=== PATIENT | male | born 1975 | race Caucasian/White ===

== ENCOUNTER 2020-01-24 18:40 | Emergency (ER) | payer OTHER ==
[2020-01-24] MEDS ORDERED: TETANUS & DIPHTHERIA TOX,ADULT 0.5 ML VIAL ONE (19:23)
[2020-01-24] MEDS ORDERED: IBUPROFEN 400 MG TAB ONE (19:23)
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
[2020-01-25 01:37] VITALS: TEMP 97.8
[2020-01-25 01:39] VITALS: O2SAT 100
[2020-01-25 01:41] VITALS: BP 143/95
== END 2020-01-24 20:30 | disposition home or self-care (01) ==
LOC: ER 18:40
DX: S60.512A Abrasion of left hand, initial encounter (principal); S60.511A Abrasion of right hand, initial encounter; S80.01XA Contusion of right knee, initial encounter; S60.222A Contusion of left hand, initial encounter; S60.221A Contusion of right hand, initial encounter; V49.49XA Driver injured in collision with other motor vehicles in traffic accident, initial encounter; Z23 Encounter for immunization
CPT/HCPCS: 90471; 90714; 99284

== ENCOUNTER 2020-03-04 16:31 | Inpatient (IN) | payer OTHER ==
--- NOTE | 2020-03-04 20:44 | EDPHYS ---
Physician Documentation [facility] Name: Nadir Bradley Age: 45 yrs Sex: Male : 1975 Arrival Date: 03/04/2020 Time: 16:33 Bed 17 Private MD: ED Physician Prashanth Davies HPI: 03/04 20:37 This 45 yrs old Male presents to ER via Ambulatory with complaints of Arm rn Swelling. 20:37 The patient presents with cellulitis of the left arm, the patient presents with a rn swollen area of the left arm. Description: erythematous, swollen, tense, warm. Onset: The symptoms/episode began/occurred 3 day(s) ago. Possible cause(s): unknown. Associated signs and symptoms: Pertinent positives: erythema, swelling, Pertinent negatives: fever. Modifying factors: the symptoms are alleviated by nothing, the symptoms are aggravated by nothing. 20:39 Severity of symptoms: At their worst the symptoms were moderate, in the emergency rn department the symptoms are unchanged. The patient has experienced a previous episode. REports 3 days of clindamycin for swollen and red left arm, no known injury, seen by Dr. Plata as outpt, redness increasing, told to come to ER for admission. No pain in elbow joint, FROM. Reports "skin feels tight". + hx of difficult to treat staph infection right knee bursa in past that required multiple abx changes. NO trauma. No hx of dvt/PE.. Historical: - Allergies: 16:36 No Known Allergies; sv - PMHx: 16:36 Bursitis; sv - PSHx: 16:36 None; sv - Immunization history:: Adult Immunizations up to date. - Family history:: not pertinent. - Social history:: Smoking status: unknown. - Hospitalizations: : No recent hospitalization is reported. ROS: 20:39 Constitutional: Negative for fever, chills, and weight loss, Eyes: Negative for injury, rn pain, redness, and discharge, Neck: Negative for injury, pain, and swelling, Cardiovascular: Negative for chest pain, palpitations, and edema, Respiratory: Negative for shortness of breath, cough, wheezing, and pleuritic chest pain, Abdomen/GI: Negative for abdominal pain, nausea, vomiting, diarrhea, and constipation, Back: Negative for injury and pain, MS/Extremity: + swelling and pain to LUE. Skin: + redness and warmth LUE. Neuro: Negative for headache, weakness, numbness, tingling, and seizure. Exam: 20:39 Constitutional: This is a well developed, well nourished patient who is awake, alert, rn and in no acute distress. Head/Face: Normocephalic, atraumatic. Cardiovascular: Regular rate and rhythm. No pulse deficits. Respiratory: No increased work of breathing, no retractions or nasal flaring. Skin: Warm, + erythema and induration of skin from distal left forearm to mid humerus, FROM left elbow. No fluctuance. MS/ Extremity: Pulses equal, no cyanosis. Neurovascular intact. Full, normal range of motion. Neuro: Awake and alert, GCS 15 Vital Signs: 16:36 BP 133 / 97; Pulse 86; Resp 16; Temp 98.1(TE); Pulse Ox 99% on R/A; Weight 102.06 kg; sv Height 5 ft. 10 in. (177.80 cm); 21:00 BP 134 / 75; Pulse 75; Resp 14; Pulse Ox 98% on R/A; ll2 22:00 BP 132 / 86; Pulse 75; Resp 16; Pulse Ox 99% on R/A; ll2 16:36 Body Mass Index 32.28 (102.06 kg, 177.80 cm) sv MDM: 20:24 Patient medically screened. rn 20:42 Differential diagnosis: cellulitis. Differential diagnosis: bursitis. Data reviewed: rn vital signs, nurses notes. Counseling: I had a detailed discussion with the patient and/or guardian regarding: the historical points, exam findings, and any diagnostic results supporting the discharge/admit diagnosis, the need for further work-up and treatment in the hospital. Admission orders: after a detailed discussion of the patient's condition and case, the admit orders are written by me. ED course: Pt with failure of outpt therapy for cellulitis, FROM left elbow, do not believe is septic arthritis, will admit for IV abx given worsening on clindamycin and difficult to treat cellulitis/bursitis in past. . 03/04 20:37 Order name: CBC with Diff rn 03/04 20:37 Order name: Basic Metabolic Panel rn 03/04 20:37 Order name: Procalcitonin rn 03/04 20:37 Order name: Blood Culture Adult (2) rn 03/04 20:37 Order name: CRP rn 03/04 20:45 Order name: COVID-19 sg 03/04 20:38 Order name: Extremity Venous Uni Ltd US rn 03/04 21:38 Order name: Basic Metabolic Panel EDCA 03/04 21:38 Order name: C-Reactive Protein EDMS 03/04 21:38 Order name: Procalcitonin EDMS 03/04 21:38 Order name: CBC with Automated Diff; Complete Time: 22:17 EDMS 03/04 21:38 Order name: Blood Culture EDMS 03/04 21:38 Order name: Blood Culture EDCA 03/04 22:24 Order name: SARS-COV-2 RT PCR; Complete Time: 22:25 EDMS 03/04 20:37 Order name: IV Start; Complete Time: 21:24 rn Administered Medications: 21:35 Drug: Cefepime 1 grams Route: IVPB; Rate: 200 ml/hr; Infused Over: 30 mins; Site: right ll2 antecubital; 22:16 Follow up: IV Status: Completed infusion; IV Intake: 100ml ll2 22:16 Follow up: Response: No adverse reaction ll2 22:26 Drug: vancoMYCIN 1 grams Route: IVPB; Infused Over: 2 hrs; Site: right antecubital; ll2 Disposition: 03/04/20 20:44 Hospitalization ordered by Navid Bailey for Inpatient Admission. Preliminary diagnosis are Cellulitis of left upper limb, Failure of outpatient therapy - cellulitis. - Bed requested for Telemetry/MedSurg (Inpatient). - Status is Inpatient Admission. ll2 - Condition is Stable. - Problem is new. - Symptoms have worsened. Signatures: Dispatcher [employer] [facility] Ann-Marie Carpio RN RN sv Webb, Martha, RN RN mw Nieto, Roman, MD MD rn Attema, Lee, CINTHYA-C [id number] Tiffany Meléndez RN RN ll2 Corrections: (The following items were deleted from the chart) 22:41 20:44 Hospitalization Ordered by Navid Bailey DO for Inpatient Admission. Preliminary mw diagnosis is Cellulitis of left upper limb; Failure of outpatient therapy - cellulitis. Bed requested for Telemetry/MedSurg (Inpatient). Status is Inpatient Admission. Condition is Stable. Problem is new. Symptoms have worsened. rn 23:07 22:41 03/04/2020 20:44 Hospitalization Ordered by Navid Bailey DO for Inpatient ll2 Admission. Preliminary diagnosis is Cellulitis of left upper limb; Failure of outpatient therapy - cellulitis. Bed requested for Telemetry/MedSurg (Inpatient). Status is Inpatient Admission. Condition is Stable. Problem is new. Symptoms have worsened. mw
--- NOTE | 2020-03-04 20:44 | ER ---
Nurse's Notes [facility] Name: Nadir Bradley Age: 45 yrs Sex: Male : 1975 Arrival Date: 03/04/2020 Time: 16:33 Bed 17 Private MD: Diagnosis: Cellulitis of left upper limb;Failure of outpatient therapy - cellulitis Presentation: 03/04 16:35 Chief complaint: Patient states: left elbow swelling since Wednesday. Saw his teledoc and sv was given Clindamycin but reports that the swelling and redness has increased. Coronavirus screen: Client denies travel out of the [place] in the last 14 days. At this time, the client does not indicate any symptoms associated with coronavirus-19. Ebola Screen: No symptoms or risks identified at this time. Risk Assessment: Do you want to hurt yourself or someone else? Patient reports no desire to harm self or others. Onset of symptoms was March 01, 2019. 16:35 Method Of Arrival: Ambulatory sv 16:35 Acuity: NAVEED 3 sv 16:36 Initial Sepsis Screen: Does the patient meet any 2 criteria? No. Patient's initial sv sepsis screen is negative. Does the patient have a suspected source of infection? No. Patient's initial sepsis screen is negative. Triage Assessment: 16:38 General: Appears in no apparent distress. uncomfortable, Behavior is calm, cooperative, sv appropriate for age. Pain: Complains of pain in left elbow. Neuro: Level of Consciousness is awake, alert, obeys commands, Oriented to person, place, time, situation, Gait is steady. Respiratory: Respiratory effort is even, unlabored. Historical: - Allergies: 16:36 No Known Allergies; sv - PMHx: 16:36 Bursitis; sv - PSHx: 16:36 None; sv - Immunization history:: Adult Immunizations up to date. - Family history:: not pertinent. - Social history:: Smoking status: unknown. - Hospitalizations: : No recent hospitalization is reported. Screenin:55 Abuse screen: Denies threats or abuse. Nutritional screening: No deficits noted. ll2 Tuberculosis screening: No symptoms or risk factors identified. Fall Risk None identified. Assessment: 20:50 General: Appears in no apparent distress. Behavior is calm, cooperative, appropriate ll2 for age. Pain: Complains of pain in left arm. Neuro: Level of Consciousness is awake, alert, obeys commands, Oriented to person, place, time, situation. Cardiovascular: Patient's skin is warm and dry. Respiratory: Airway is patent Respiratory effort is even, unlabored, Respiratory pattern is regular, symmetrical. GI: No signs and/or symptoms were reported involving the gastrointestinal system. : No signs and/or symptoms were reported regarding the genitourinary system. EENT: No signs and/or symptoms were reported regarding the EENT system. Derm: Skin is intact, Skin is pink, warm \T\ dry. Musculoskeletal: Circulation, motion, and sensation intact. Range of motion: intact in all extremities. 21:55 Reassessment: Patient and/or family updated on plan of care and expected duration. Pain ll2 level reassessed. Patient is alert, oriented x 3, equal unlabored respirations, skin warm/dry/pink. pt denies any side effects of antibiotics. 22:54 Reassessment: Patient and/or family updated on plan of care and expected duration. Pain ll2 level reassessed. Patient is alert, oriented x 3, equal unlabored respirations, skin warm/dry/pink. report given to HANNAH Hale. Vital Signs: 16:36 BP 133 / 97; Pulse 86; Resp 16; Temp 98.1(TE); Pulse Ox 99% on R/A; Weight 102.06 kg; sv Height 5 ft. 10 in. (177.80 cm); 21:00 BP 134 / 75; Pulse 75; Resp 14; Pulse Ox 98% on R/A; ll2 22:00 BP 132 / 86; Pulse 75; Resp 16; Pulse Ox 99% on R/A; ll2 16:36 Body Mass Index 32.28 (102.06 kg, 177.80 cm) sv ED Course: 16:33 Patient arrived in ED. rg4 16:36 Triage completed. sv 16:36 Arm band placed on. sv 20:24 Prashanth Davies MD is Attending Physician. rn 20:43 Navid Bailey DO is Hospitalizing Provider. rn 20:55 Patient has correct armband on for positive identification. Bed in low position. Call ll2 light in reach. Side rails up X 1. Pulse ox on. NIBP on. 20:55 No provider procedures requiring assistance completed. ll2 21:13 [place], Tiffany, HANNAH is Primary Nurse. ll2 22:57 Patient admitted, IV remains in place. ll2 Administered Medications: 21:35 Drug: Cefepime 1 grams Route: IVPB; Rate: 200 ml/hr; Infused Over: 30 mins; Site: right ll2 antecubital; 22:16 Follow up: IV Status: Completed infusion; IV Intake: 100ml ll2 22:16 Follow up: Response: No adverse reaction ll2 22:26 Drug: vancoMYCIN 1 grams Route: IVPB; Infused Over: 2 hrs; Site: right antecubital; ll2 Intake: 22:16 IV: 100ml; Total: 100ml. ll2 Outcome: 20:44 Decision to Hospitalize by Provider. rn 22:56 Admitted to Med/surg accompanied by tech, via wheelchair, Report called to HANNAH hale ll2 22:57 Condition: stable ll2 22:57 Instructed on the need for admit. 23:07 Patient left the ED. ll2 Signatures: Ann-Marie Carpio RN RN sv Nieto, Roman, MD MD rn Garcia, Rubi rg4 Tiffany Meléndez RN RN ll2 Corrections: (The following items were deleted from the chart) 16:38 16:36 Pulse 86bpm; Resp 16bpm; Pulse Ox 99% RA; Temp 98.1F Temporal; 102.06 kg; Height sv 5 ft. 10 in.; BMI: 32.2; sv
[2020-03-04] MEDS ORDERED: CEFEPIME 2 GM VIAL ONE (21:35)
[2020-03-04] MEDS ORDERED: NA CHLORIDE 0.9% 250 ML ONE (21:35)
[2020-03-04] MEDS ORDERED: VANCOMYCIN 1 GM/VIAL ONE (21:35)
[2020-03-04] MEDS ORDERED: NA CHLORIDE 0.9% 100 ML ONE (21:35)
[2020-03-04 21:51] LABS: Absolute Lymphocytes (CBC) 2.8 K/uL (0.7-4.9); Basophils % 0.8 % (0-1.3); Hematocrit 38.6 % (39.6-49.0); Lymphocytes % 25.4 % (15.3-44.8); RBC Red Blood Cell Count 4.32 M/uL (4.33-5.43)
--- NOTE | 2020-03-04 22:38 | P.HP ---
Certification for Inpatient Patient admitted to: Inpatient With expected LOS: >2 Midnights Patient will require the following post-hospital care: None Practitioner: I am a practitioner with admitting privileges, knowledge of patient current condition, hospital course, and medical plan of care. Services: Services provided to patient in accordance with Admission requirements found in Title 42 Section 412.3 of the Code of Federal Regulations <Joshua Jones - Last Filed: 03/04/20 22:35> Patient History Date of Service: 03/04/20 Primary Care Provider: None Reason for admission: Cellulitis left upper extremity History of Present Illness: 45-year-old otherwise healthy male presents the emergency department for redness and swelling of the left upper extremity. Patient reports that he was seen by Dr. Plata on March 02 2020 for redness and swelling of the left elbow. This was initially thought to be bursitis and patient was prescribed clindamycin. Patient has been taking clindamycin on an outpatient basis. Redness initially was restricted to the area surrounding the elbow but has in creased greatly in now extends to the posterior aspect of left arm extending from the mid humeral area to the mid forearm area. Vital signs stable, patient does not appear septic, white blood cell count 11.0. Patient with full range of motion of the left arm at the elbow, does not appear to be any form of septic arthritis. Patient has had staph infections resistant to multiple antibiotics in the past. ED provider wishes to admit patient for further evaluation and management. - Past Medical/Surgical History -: none -: none Psychosocial/ Personal History: Patient lives with his - Family History Family History: Reviewed- Non-Contributory - Social History Smoking Status: Never smoker Alcohol use: Yes CD- Drugs: No Caffeine use: Yes Place of Residence: Home <Joshua Jones - Last Filed: 03/04/20 22:35> Date of Service: 03/05/20 Home medications list reviewed: Yes - Past Medical/Surgical History Diabetic: No <Navid Bailey - Last Filed: 03/05/20 09:31> Review of Systems 10-point ROS is otherwise unremarkable Integumentary: Rash, As per HPI <Joshua Jones - Last Filed: 03/04/20 22:35> Physical Examination - Physical Exam General: Alert, In no apparent distress, Oriented x3 HEENT: Atraumatic, Normocephalic, PERRLA Neck: Supple Respiratory: Clear to auscultation bilaterally, Normal air movement Cardiovascular: No edema, Normal S1 S2 Capillary refill: <2 Seconds Gastrointestinal: Normal bowel sounds, No tenderness, No masses, No rebound Musculoskeletal: Swelling, Erythema, Tenderness, Warmth Integumentary: Tenderness/swelling, Erythema (Left upper extremity from posterior aspect of the mid humeral area to the posterior aspect of the in the mid left forearm area), Warmth Neurological: Normal speech, Normal strength at 5/5 x4 extr - Studies Laboratory Data (last 24 hrs) 03/04/20 21:33: WBC 11.0 H, Hgb 13.0 L, Hct 38.6 L, Plt Count 222 <Joshua Jones - Last Filed: 03/04/20 22:35> - Studies Laboratory Data (last 24 hrs) 03/04/20 21:33: Sodium 140, Potassium 3.7, BUN 23 H, Creatinine 0.91, Glucose 97 03/04/20 21:33: WBC 11.0 H, Hgb 13.0 L, Hct 38.6 L, Plt Count 222 03/04/20 20:37: Sodium Cancelled, Potassium Cancelled, BUN Cancelled, Creatinine Cancelled, Glucose Cancelled 03/04/20 20:37: WBC Cancelled, Hgb Cancelled, Hct Cancelled, Plt Count Cancelled <Navid Bailey - Last Filed: 03/05/20 09:31> Assessment and Plan - Plan Assessment Cellulitis left upper extremity failed outpatient therapy with history of MRSA Plan Cellulitis left upper extremity failed outpatient therapy with history of MRSA: Continue broad-spectrum antibiotics with vancomycin, cefepime. Blood cultures obtained in the emergency department patient does not appear septic at this time. Monitor cellulitis closely, of daily CBC, BMP. DVT prophylaxis Lovenox 40 mg subcutaneous once daily. Anticipate clinical improvement next 48-72 hr. Ultrasound to rule out DVT pending. Discharge Plan: Home Plan to discharge in: 48 Hours - Advance Directives Does patient have a Living Will: No Does patient have a Durable POA for Healthcare: No - Code Status/Comfort Care Code Status Assessed: Yes (Full code) Critical Care: No Time Spent Managing Pts Care (In Minutes): 55 <Joshua Jones - Last Filed: 03/04/20 22:35> - Plan Case discussed in detail with nurse practitioner. Agree with plan of care. Will check chest x-ray. Will consult infectious disease. <Navid Bailey - Last Filed: 03/05/20 09:31>
[2020-03-04 22:39] LABS: Potassium 3.7 mmol/L (3.5-5.1)
[2020-03-04] MEDS ORDERED: ONDANSETRON 4 MG/2 ML VIAL IV PRN (23:30)
[2020-03-04] MEDS ORDERED: HYDROCODONE/APAP 7.5/325 MG TAB PO PRN (23:30)
[2020-03-04] MEDS: VANCOMYCIN/NS 1 gm 1 GM/250 ML BAG IVPB ONE (23:45)
[2020-03-04 23:52] VITALS: BMI 33.2
[2020-03-05] MEDS ORDERED: NA CHLORIDE 0.9% 250 ML ONE (00:53)
[2020-03-05] MEDS ORDERED: VANCOMYCIN 1 GM/VIAL ONE (00:53)
[2020-03-05] MEDS: VANCOMYCIN/NS 1 gm 1 GM/250 ML BAG IVPB ONE (01:07)
[2020-03-05 06:09] LABS: Absolute Lymphocytes (CBC) 2.1 K/uL (0.7-4.9); Basophils % 0.6 % (0-1.3); Hematocrit 36.8 % (39.6-49.0); Lymphocytes % 21.1 % (15.3-44.8); MPV 8.2 fL (7.6-11.3); RBC Red Blood Cell Count 4.06 M/uL (4.33-5.43)
[2020-03-05 06:29] LABS: BUN Blood Urea Nitrogen 17 mg/dL (7-18); Bicarbonate 25 mmol/L (21-32); Glucose Level 101 mg/dL (74-106); Potassium 3.9 mmol/L (3.5-5.1); Sodium Level 142 mmol/L (136-145)
[2020-03-05] MEDS ORDERED: VANCOMYCIN 1 GM in NA CHLORIDE 0.9% 500 ML IVPB SCH (09:00)
[2020-03-05] MEDS ORDERED: CEFEPIME 1 GM/VIAL IV SCH (09:00)
[2020-03-05] MEDS: VANCOMYCIN 2 GM in NA CHLORIDE 0.9% 500 ML IVPB SCH ×2 (09:24→19:33)
[2020-03-05] MEDS: CEFEPIME/SWI 1gm 10 ML IV SCH ×2 (09:25→19:32)
[2020-03-05] MEDS: ENOXAPARIN 40 MG/0.4 ML SQ SCH (09:26)
--- NOTE | 2020-03-05 09:33 | P.PN ---
Subjective Date of Service: 03/05/20 Primary Care Provider: None Chief Complaint: Cellulitis left upper extremity Subjective: Improving Physical Examination - Vital Signs Temperature: 98.3 F Blood Pressure: 144/91 Pulse: 79 Respirations: 20 Pulse Ox (%): 95 - Physical Exam General: Alert, In no apparent distress, Oriented x3, Cooperative HEENT: Atraumatic Neck: Supple Respiratory: Clear to auscultation bilaterally, Normal air movement Cardiovascular: Normal pulses, Regular rate/rhythm Gastrointestinal: Normal bowel sounds Integumentary: Other (Left elbow all region swelling improved. Less erythema noted. Able to extend appropriately.) Neurological: Normal speech, Normal strength at 5/5 x4 extr, Normal tone, Normal affect - Studies Laboratory Data (last 24 hrs) 03/04/20 21:33: Sodium 140, Potassium 3.7, BUN 23 H, Creatinine 0.91, Glucose 97 03/04/20 21:33: WBC 11.0 H, Hgb 13.0 L, Hct 38.6 L, Plt Count 222 03/04/20 20:37: Sodium Cancelled, Potassium Cancelled, BUN Cancelled, Creatinine Cancelled, Glucose Cancelled 03/04/20 20:37: WBC Cancelled, Hgb Cancelled, Hct Cancelled, Plt Count Cancelled Medications List Reviewed: Yes Assessment & Plan Discharge Plan: Home Plan to discharge in: 48 Hours Physician Review Additional Text: Impression: Left upper extremity cellulitis, failed outpatient therapy complicated with history of MRSA Plan: Continue with IV antibiotic therapy at this time. Improvement noted. Elevate left upper extremity. Will provide ice pack to the area. Will provide medication for pain. DVT prophylaxis in place. Will consult infectious disease to further evaluate. Will obtain echocardiogram. Blood cultures obtained. Anticipate improvement over the next 48-72 hr. Will discuss further with Infectious Disease. Time Spent Managing Pts Care (In Minutes): 55
--- NOTE | 2020-03-05 09:45 | RAD REPORT ---
EXAM DESCRIPTION: US - UPPER EXTREMITY VENOUS UNILATE - 03/05/2020 9:37 am CLINICAL HISTORY: Left arm pain and swelling. COMPARISON: None. FINDINGS: Left internal jugular vein, left subclavian vein, left axillary vein, left brachial vein, left cephalic, left basilic, left ulnar and left radial veins demonstrate phasic signal. The veins ar e compressible. Doppler demonstrates good flow. . IMPRESSION: No sonographic evidence of thrombus involving the left upper extremity veins.
--- NOTE | 2020-03-05 10:10 | RAD REPORT ---
EXAM DESCRIPTION: RAD - Elbow Left 3 View - 03/05/2020 10:01 am CLINICAL HISTORY: Left elbow pain and swelling. Cellulitis FINDINGS: No fracture or dislocation is seen. Diffuse soft tissue swelling. No bony destructive lesi on noted
--- NOTE | 2020-03-05 13:08 | CON ---
Date of Consultation: 03/05/2020 History Of Present Illness: This is my first time seeing this patient to my knowledge. He is a 45-y ear-old male who started having pain and problems related to his left elbow for unknown reasons. It became more and more painful and he made an appointment to see an outside orthopedist who saw him, go t x-rays, determined that this was most likely cellulitis, possibly bursitis and he was referred to t [facility] facility. He is admitted under the care of the hospitalist and I am asked to see him. On review of his laboratories, he has no cultures yet, but has had aerobic and anaerobic blood cultures done, although they are pending. He has a white blood cell count, which was originally 11.0, now down to 1 0.0. X-rays do not demonstrate anything other than soft tissue swelling. On physical examination, conchita moraes does have erythema near his wrist to his mid arm. This appears to be mostly posterior. He does rubalcava ve some swelling in the region of the bursa, however, it definitely does not appear to be fluctuant a nd is not obviously fluid-filled and discrete at this point. Assessment: This is a 45-year-old male with olecranon cellulitis, possibly bursitis. I would contin ue treating him with IV antibiotics directed towards Staphylococcus as well as Streptococcus. Have h im n.p.o. after midnight tonight and we will check on him tomorrow. If it appears that this is resol ving with IV antibiotics, we will discontinue this. Otherwise, he may need operative intervention. This has been explained to he and his family. YELENA Voice ID: [id number] Report ID: [id number]
[2020-03-06 05:47] LABS: Absolute Lymphocytes (CBC) 2.6 K/uL (0.7-4.9); Basophils % 0.6 % (0-1.3); Hematocrit 38.3 % (39.6-49.0); Lymphocytes % 30.1 % (15.3-44.8); MPV 7.9 fL (7.6-11.3); RBC Red Blood Cell Count 4.25 M/uL (4.33-5.43)
--- NOTE | 2020-03-06 06:00 | PN ---
Date of Progress Note: 03/06/2020 The patient is seen today. His area of redness has decreased. His olecranon may be a little bit mor e prominent today. He does not appear to be becoming septic and it appeared that he is overall impro ving. At this time, I think, we can let him eat. We will make him n.p.o. after midnight. We will s ee how much he improves with the antibiotics. It is possible we could go without any operative inter vention, but also it is possible that this could lead to abscess formation of the olecranon bursa. W e will just simply need to observe this and continue current care. YELENA Voice ID: [id number] Report ID: [id number]
[2020-03-06 06:01] LABS: C-Reactive Protein 67.3 mg/L (<3.00); Potassium 4.1 mmol/L (3.5-5.1)
--- NOTE | 2020-03-06 08:56 | P.PN ---
Subjective Date of Service: 03/06/20 Primary Care Provider: None Chief Complaint: Cellulitis left upper extremity Subjective: Improving Physical Examination - Vital Signs Temperature: 964 F Blood Pressure: 138/73 Pulse: 56 Respirations: 16 Pulse Ox (%): 98 - Physical Exam General: Alert, In no apparent distress, Oriented x3, Cooperative HEENT: Atraumatic Neck: Supple Respiratory: Normal air movement Cardiovascular: Normal pulses Integumentary: Other (Left elbow shows improvement in swelling. No significant erythema noted.) - Studies Medications List Reviewed: Yes Assessment & Plan Discharge Plan: Home Plan to discharge in: 48 Hours Physician Review Additional Text: Impression: Left upper extremity cellulitis with possible elbow bursitis, failed outpatient therapy complicated with history of MRSA Plan: Continue with IV antibiotic therapy at this time. Case discussed with orthopedics. Patient was kept NPO after midnight today in anticipation for possible surgery. No surgery needed at this time. Orthopedics will continue to reassess for possible surgery tomorrow. Will keep the patient NPO after midnight again tonight with reassessment tomorrow. Await culture results. Continue to elevate left upper extremity. Will provide medication for pain. Will discuss with infectious disease. Continue with plan of care. Time Spent Managing Pts Care (In Minutes): 55
[2020-03-06] MEDS: CEFEPIME/SWI 1gm 10 ML IV SCH ×2 (09:18→20:37)
[2020-03-06] MEDS: ENOXAPARIN 40 MG/0.4 ML SQ SCH (09:18)
[2020-03-06] MEDS: VANCOMYCIN 2 GM in NA CHLORIDE 0.9% 500 ML IVPB SCH ×2 (09:18→20:37)
--- NOTE | 2020-03-06 13:06 | PN ---
Subjective: The patient sitting in bed, not in any acute distress. Continue to have some swelling a nd redness to the left elbow region. Objective: Lungs: Clear to auscultation. Heart: S1 and S2 regular. Abdomen: Soft, nontender. Bowel sounds present. Extremities: Left elbow region with erythematous changes, increased warmth and swelling. Laboratory Data: WBC 8.6, hemoglobin 12.9, platelets are 210. Chemistry shows sodium 140, potassium 4.1, chloride 110, bicarb 26, BUN 15, creatinine 0.9, glucose 96. Micro data: Blood cultures are negative. Assessment/plan: Left elbow region cellulitis. We will get an MRI to rule out any bone or joint inv olvement. Continue empiric antibiotic and supportive care. NF/MODL Voice ID: [id number] Report ID: [id number]
--- NOTE | 2020-03-06 16:38 | RAD REPORT ---
EXAM DESCRIPTION: MRI - Forearm Left W/Wo Cont - 03/06/2020 4:27 pm CLINICAL HISTORY: cellulitis Pain and swelling COMPARISON: Elbow Left 3 View dated 03/05/2020 FINDINGS: There is significant skin thickening and subcutaneous edema and fluid present about the do rsal aspect of the elbow. Post-contrast enhancement is seen throughout this tissue which is significa ntly inflamed. Several varying size fluid collections are seen about the olecranon region the largest measuring 14 mm which are suspicious for abscesses. No underlying osteomyelitis seen. No fascia enhancement or soft tissue mass. IMPRESSION: Significant cellulitis pattern is seen along the dorsal forearm and elbow with multiple fluid collections in the region of the olecranon soft tissues suspicious for abscesses.
[2020-03-06] MEDS: IBUPROFEN 400 MG TAB PO PRN (16:51)
--- NOTE | 2020-03-07 08:54 | ECHO ---
HEIGHT: 5 ft 10 in WEIGHT: 231 lb 9.6 oz DATE OF STUDY: 03/06/[address]: Navid Bailey DO 2-DIMENSIONAL: YES M.MODE: YES DOPPLER: YES COLOR FLOW: YES TDS: PORTABLE: DEFINITY: BUBBLE STUDY: DIAGNOSIS: LEFT UPPER EXTREMITY CELLULITIS CARDIAC HISTORY: CATHERIZATION: NO SURGERY: NO PROSTHETIC VALVE: NO PACEMAKER: NO MEASUREMENTS (cm) DIASTOLIC (NORMALS) SYSTOLIC (NORMALS) IVSd 101 (0.6-1.2) LA Diam 3.4 (1.9-4.0) LVEF 69% LVIDd 4.8 (3.5-5.7) LVIDs 3.0 (2.0-3.5) %FS 38% LVPWd 1.2 (0.6-1.2) Ao Diam 2.9 (2.0-3.7) 2 DIMENSIONAL ASSESSMENT: RIGHT ATRIUM: LEFT ATRIUM: RIGHT VENTRICLE: LEFT VENTRICLE: TRICUSPID VALVE: MITRAL VALVE: PULMONIC VALVE: AORTIC VALVE: PERICARDIAL EFFUSION: AORTIC ROOT: LEFT VENTRICULAR WALL MOTION: DOPPLER/COLOR FLOW: COMMENTS: NORMAL 2-DIMENSIONAL ECHOCARDIOGRAM WITH DOPPLER. NO WALL MOTION ABNORMALITY. NO EFFUSION. TECHNOLOGIST: APRIL BLOOM
[2020-03-07] MEDS: CEFEPIME/SWI 1gm 10 ML IV SCH ×2 (09:00→21:42)
[2020-03-07] MEDS: ENOXAPARIN 40 MG/0.4 ML SQ SCH (09:00)
[2020-03-07] MEDS: VANCOMYCIN 2 GM in NA CHLORIDE 0.9% 500 ML IVPB SCH ×2 (10:10→22:04)
[2020-03-07] MEDS: IBUPROFEN 400 MG TAB PO PRN ×2 (10:20→22:09)
--- NOTE | 2020-03-07 14:18 | PN ---
Date of Progress Note: 03/07/2020 The patient is seen today. He may have made some marginal improvement on IV antibiotics, however, gini s had an MRI yesterday which demonstrates a probable fluid collection in the region of the olecranon bursa. On seeing him today, he does have a small fluctuant area in the region of olecranon bursa as well as surrounding erythema and swelling. After verbal informed consent was obtained, the area was cleaned and an aspiration of scanty amount of bursal fluid was then removed. This will be sent for G donny stain and culture. His blood cultures have been negative. His white blood cell count is now alexander n to 8.6. Based on his slow recovery with IV antibiotics as well as now probable small abscess forma tion, we will schedule him for operative bursectomy tomorrow with irrigation and debridement. Risks, benefits, and alternatives of procedure have been discussed with the patient. He states he understa nds things as presented and wishes to proceed. /RENU Voice ID: [id number] Report ID: [id number]
--- NOTE | 2020-03-07 14:33 | P.PN ---
Subjective Date of Service: 03/07/20 Primary Care Provider: None Chief Complaint: Cellulitis left upper extremity Subjective: Other (Patient stable.) Physical Examination - Vital Signs Temperature: 97.5 F Blood Pressure: 125/79 Pulse: 66 Respirations: 18 Pulse Ox (%): 98 - Physical Exam HEENT: Atraumatic Neck: Supple Respiratory: Clear to auscultation bilaterally Cardiovascular: Normal pulses, Regular rate/rhythm Gastrointestinal: Normal bowel sounds Musculoskeletal: Other (Swelling to the left elbow slightly improved. Still some areas of inflammation.) Neurological: Normal speech, Normal strength at 5/5 x4 extr, Normal tone - Studies Medications List Reviewed: Yes Assessment & Plan Discharge Plan: Home Plan to discharge in: Greater than 2 days Physician Review Additional Text: Impression: Left upper extremity cellulitis with possible elbow bursitis, failed outpatient therapy complicated with history of MRSA Plan: Continue IV antibiotic therapy. Case discussed with orthopedics. Orthopedics aspirated elbow. Will send for analysis and cultures. Blood cultures negative. Hopefully this will provide some direction on antibiotics. Orthopedics plans for debridement tomorrow. Patient will continue with IV antibiotic therapy. If debridement tomorrow then another debridement and closure on Wednesday. Will provide medication for pain. Will discuss further with Infectious Disease and patient. Time Spent Managing Pts Care (In Minutes): 55
[2020-03-08 05:31] LABS: Absolute Lymphocytes (CBC) 3.1 K/uL (0.7-4.9); Lymphocytes % 33.4 % (15.3-44.8); MPV 7.9 fL (7.6-11.3); RBC Red Blood Cell Count 4.54 M/uL (4.33-5.43)
[2020-03-08 06:01] LABS: BUN Blood Urea Nitrogen 17 mg/dL (7-18); Bicarbonate 24 mmol/L (21-32); Glucose Level 93 mg/dL (74-106); Potassium 4.9 mmol/L (3.5-5.1); Sodium Level 139 mmol/L (136-145)
[2020-03-08] MEDS ORDERED: propofoL 200 MG/20 ML VIAL IV ONE (06:36)
[2020-03-08] MEDS ORDERED: ONDANSETRON 4 MG/2 ML VIAL ONE (06:36)
[2020-03-08] MEDS ORDERED: dexAMETHasone 10 MG/ML VIAL ONE (06:36)
[2020-03-08] MEDS ORDERED: LIDOCAINE 2% MPF 5 ML VIAL ONE (06:36)
[2020-03-08] MEDS ORDERED: MIDAZOLAM HCL 2 MG/2 ML INJ ONE (06:36)
[2020-03-08] MEDS ORDERED: KETOROLAC 30 MG/ML INJ ONE (06:36)
[2020-03-08] MEDS ORDERED: FENTANYL CITR 100 MCG/2 ML ONE (06:36)
[2020-03-08] MEDS ORDERED: Ringers Lactate 1,000 ML IV ONE (06:39)
[2020-03-08] MEDS: CEFEPIME/SWI 1gm 10 ML IV SCH ×2 (06:48→20:49)
[2020-03-08] MEDS ORDERED: ROPLVACAINE HCL 40 ML ONE (06:49)
[2020-03-08] MEDS ORDERED: NS 0.9% VIAL 10 ML ONE (06:49)
--- NOTE | 2020-03-08 08:04 | P.BOP ---
Preoperative diagnosis: left septic olecranon bursitis/septic Postoperative diagnosis: same Primary procedure: sharp I&D with bursal excision Estimated blood loss: 10ccs Anesthesia: General Transferred to: Recovery Room Condition: Good
[2020-03-08] MEDS: HYDROMORPHONE HCL 1 MG/ML INJ ONE ×2 (08:50→09:00)
--- NOTE | 2020-03-08 09:35 | OP ---
Date of Procedure: 03/08/2020 Surgeon: Adriano Juárez MD Preoperative Diagnosis: Left olecranon bursitis with abscess formation. Postoperative Diagnosis: Left olecranon bursitis with abscess formation. Procedures: Left olecranon bursal excision with sharp irrigation and debridement including rongeur, scissors, and knife. Complications: There were no complications. Specimens: There are cultures as well as a pathology specimens sent. Indications For Operation: Mr. Bradley is a 45-year-old gentleman, who unfortunately began having shahnaz e pain and problems related to his elbow, initially started with just some discomfort; however, he di d have some swelling and some redness. He was then treated with oral antibiotics, but unfortunately continued to worsen until he was seen by an orthopedist other than myself, who does not have admittin g privileges at this hospital and was told to come to this hospital out of concerns of significant in fection. He was then seen in the emergency department and x-rays were taken, which demonstrated no b elizabeth abnormalities. His white blood cell count was 11,000. He was admitted. After he was admitted, I was consulted to see him. On initial physical examination, he had a fairly significant erythema to the midportion of the forearm, midportion of the arm as well as some soft tissue swelling of the elb ow, but no fluctuance. He was treated with IV antibiotics for several days, then obtained an erica URBINA ch demonstrated some fluid collection. Yesterday, I attempted an aspiration with small amount of flu id; however, he has not made significant progress after the first day or so. Therefore, the decision was made to proceed with olecranon bursectomy, irrigation and debridement. All risks, benefits, and alternatives were discussed, and he states he understands things as presented and wished to proceed. Description Of Procedure: Patient was taken to the operating room. He was then placed in a harrison bag in side-lying position. Then, LMA was placed easily by Anesthesia. He was then completely position ed using the harrison bag and good exposure of the left arm. The left upper extremity was then prepped a nd draped in usual sterile fashion procedure. Following this, a sterile tourniquet was then placed o n superior aspect of the arm and incision was marked moving slightly medial to the midpoint of the ol ecranon at the olecranon point. The arm was then elevated, but not exsanguinated. Tourniquet was ra ised. Incision was made, which parallels this line. Full-thickness skin flaps were then taken from medial to lateral direction from midline. This was done from the 6 o'clock to 12 o'clock position. Finger was able to be placed at the most superior aspect of the bursa and we were able to free that f rom the surrounding tissues there. Combination of blunt and sharp dissection using finger as well as scissors and were then used to reflect this back to slightly past the midline. There was a small amount of very adherent bursa at the olecranon, which was removed using a rongeur. This are a was then completely clear. After this was done, the skin was then reflected back as full-thickness flap from the midline medially. This was then done in the same procedure until we near the ulnar ne rves. As we near the ulnar nerve, the bursa was very well positioned and then slightly truncated, le aving a small portion of reactive tissue behind, protecting the ulnar nerve. After this, the rongeur was used to clean up any remaining aberrant tissue. The wound was then irrigated with 2 L of steril e saline using jet lavage at low pressure. After this, the tourniquet was dropped. Any bleeding was controlled using direct pressure as well as Bovie. It was then packed with Kerlix dressing and plac ed in a bulky dressing as well as a splint. Patient was then awakened and taken to recovery room in good condition. No complications. /RENU Voice ID: [id number] Report ID: [id number]
[2020-03-08] MEDS: VANCOMYCIN 2 GM in NA CHLORIDE 0.9% 500 ML IVPB SCH ×2 (10:29→20:49)
--- NOTE | 2020-03-08 11:13 | P.PN ---
Subjective Date of Service: 03/08/20 Primary Care Provider: None Chief Complaint: Cellulitis left upper extremity Subjective: Improving, Doing well Physical Examination - Vital Signs Temperature: 97.4 F Blood Pressure: 109/70 Pulse: 69 Respirations: 16 Pulse Ox (%): 99 - Physical Exam General: Alert, In no apparent distress, Oriented x3 HEENT: Atraumatic Neck: Supple Respiratory: Clear to auscultation bilaterally, Normal air movement Cardiovascular: Normal pulses Musculoskeletal: Other (Reviewed pictures from patient's . Swelling i mproved. Patient postop. Bandages in place) Neurological: Normal speech, Normal strength at 5/5 x4 extr, Normal tone, Normal affect - Studies Medications List Reviewed: Yes Assessment & Plan Discharge Plan: Home Plan to discharge in: 48 Hours Physician Review Additional Text: Impression: Left upper extremity cellulitis with olecranon bursitis with abscess formation, failed outpatient therapy complicated with history of MRSA, status post sharp irrigation/debridement Plan: Continue IV antibiotic therapy. Case discussed with orthopedics yesterday. Surgery performed. Will continue monitor over the next 2 days. Surgery plans to take the patient back to surgery on Wednesday with re-evaluation and likely closure. Drain will be placed at that time. Possible discharge on Wednesday if stable on continued antibiotic therapy. Continue to await culture results. Continue monitor closely. Time Spent Managing Pts Care (In Minutes): 55
[2020-03-08] MEDS: TRAMADOL HCL 50 MG TAB PO PRN ×2 (12:44→21:04)
[2020-03-08] MEDS: ENOXAPARIN 40 MG/0.4 ML SQ SCH (14:40)
[2020-03-08] MEDS: IBUPROFEN 400 MG TAB PO PRN (14:45)
[2020-03-09] MEDS: TRAMADOL HCL 50 MG TAB PO PRN ×2 (05:16→13:20)
[2020-03-09 08:27] LABS: Absolute Lymphocytes (CBC) 2.2 K/uL (0.7-4.9); Basophils % 0.3 % (0-1.3); Hematocrit 40.9 % (39.6-49.0); RBC Red Blood Cell Count 4.55 M/uL (4.33-5.43)
[2020-03-09 08:28] LABS: BUN Blood Urea Nitrogen 17 mg/dL (7-18); Bicarbonate 27 mmol/L (21-32); Glucose Level 79 mg/dL (74-106); Potassium 4.6 mmol/L (3.5-5.1); Sodium Level 139 mmol/L (136-145)
[2020-03-09] MEDS: ENOXAPARIN 40 MG/0.4 ML SQ SCH (09:00)
[2020-03-09] MEDS: CEFEPIME/SWI 1gm 10 ML IV SCH ×2 (09:10→20:27)
[2020-03-09] MEDS: VANCOMYCIN 2 GM in NA CHLORIDE 0.9% 500 ML IVPB SCH ×2 (09:10→20:26)
--- NOTE | 2020-03-09 10:28 | P.PN ---
Subjective Date of Service: 03/09/20 Primary Care Provider: None Chief Complaint: Cellulitis left upper extremity Subjective: Other (Patient status post surgery. Overall stable.) Physical Examination - Vital Signs Temperature: 97.5 F Blood Pressure: 135/76 Pulse: 59 Respirations: 20 Pulse Ox (%): 99 - Physical Exam General: Alert, In no apparent distress, Oriented x3, Cooperative HEENT: Atraumatic Neck: Supple Respiratory: Normal air movement Cardiovascular: Normal pulses Musculoskeletal: Other (Swelling to the left upper extremity stable. Bandages in place to the left arm. Reports mild numbness to the thumb and index finger.) Neurological: Normal speech, Normal strength at 5/5 x4 extr, Normal tone, Normal affect - Studies Medications List Reviewed: Yes Assessment & Plan Discharge Plan: Home Plan to discharge in: 24 Hours Physician Review Additional Text: Impression: Left upper extremity cellulitis with olecranon bursitis with abscess formation, failed outpatient therapy complicated with history of MRSA, status post sharp irrigation/debridement Plan: Blood, wound culture still negative. Continue IV antibiotic therapy. Status post surgery. Patient reports some mild numbness to the thumb and index finger likely from anesthesia. Will monitor this closely. Encourage to elevate arm when all possible. Encourage ambulation. Will discuss with orthopedics. Surgery is planned for again for tomorrow with closure and drain placement. Possible discharge as early as tomorrow. Will discuss with infectious disease on antibiotic coverage at discharge. Time Spent Managing Pts Care (In Minutes): 55
[2020-03-09] MEDS: IBUPROFEN 400 MG TAB PO PRN ×2 (10:45→16:00)
[2020-03-10] MEDS: TRAMADOL HCL 50 MG TAB PO PRN (00:55)
[2020-03-10] MEDS ORDERED: Ringers Lactate 1,000 ML IV ONE (06:56)
[2020-03-10 07:03] LABS: Lymphocytes % 36.3 % (15.3-44.8); MPV 7.6 fL (7.6-11.3); RBC Red Blood Cell Count 4.29 M/uL (4.33-5.43)
[2020-03-10] MEDS ORDERED: LIDOCAINE 1% MPF 5 ML VIAL ONE (07:14)
[2020-03-10] MEDS ORDERED: propofoL 200 MG/20 ML VIAL IV ONE (07:14)
[2020-03-10] MEDS ORDERED: dexAMETHasone 4 MG/ML VIAL ONE (07:14)
[2020-03-10] MEDS ORDERED: FENTANYL CITR 100 MCG/2 ML ONE (07:14)
[2020-03-10] MEDS ORDERED: MIDAZOLAM HCL 2 MG/2 ML INJ ONE (07:14)
[2020-03-10] MEDS ORDERED: ONDANSETRON 4 MG/2 ML VIAL ONE (07:15)
[2020-03-10] MEDS ORDERED: KETOROLAC 30 MG/ML INJ ONE (07:31)
--- NOTE | 2020-03-10 08:21 | P.BOP ---
Preoperative diagnosis: left septic olecranon bursitis/septic s/p I&D Postoperative diagnosis: same Primary procedure: sharp I&D with closure over drain Estimated blood loss: 20ccs Anesthesia: General Complications: None Transferred to: Recovery Room Condition: Good
[2020-03-10] MEDS: VANCOMYCIN 2 GM in NA CHLORIDE 0.9% 500 ML IVPB SCH (09:00)
[2020-03-10] MEDS: ENOXAPARIN 40 MG/0.4 ML SQ SCH (09:00)
[2020-03-10] MEDS ORDERED: MEPERIDINE HCL 25 MG/ML SYR ONE (09:02)
[2020-03-10 09:09] VITALS: O2SAT 100
--- NOTE | 2020-03-10 09:18 | OP ---
Date of Procedure: 03/10/2020 Surgeon: Adriano Juárez MD Preoperative Diagnosis: Left elbow status post bursectomy and sharp irrigation and debridement of el bow with need for second-look irrigation and probable closure. Postoperative Diagnosis: Left elbow status post bursectomy and sharp irrigation and debridement of e lbow with need for second-look irrigation and probable closure. Procedure: Left elbow sharp irrigation and debridement using a scalpel and rongeur with closure over a medium Hemovac drain. Estimated Blood Loss: 20 cc. Complications: None. Pathology: No pathology specimen sent. Indication For Operation: Mr. Bradley is a 45-year-old male who unfortunately began having a pain in his elbow. This then developed into a fairly significant cellulitis with probable olecranon bursitis . This was treated with IV antibiotics. He then came to an end point as far as his improvement with fluid collection demonstrated by MRI as well as by physical examination and underwent a bursectomy w ith irrigation and sharp debridement 2 days ago. This was left open and packed. We will now bring h im back for second-look irrigation debridement and possible closure over a drain. Description Of Procedure: The patient was taken to the operating room and placed in supine position. General anesthesia was obtained by the staff. Following this, he was then rolled right side down o n a harrison bag. His left upper extremity was then prepped and draped in the usual sterile fashion for an open wound. After this, it was examined throughout. It was found have good beefy granulation tis salomón throughout without any signs of necrotic tissue or purulent material. A rongeur was used to debr mariaelena slightly around the olecranon and liters of sterile saline were used for irrigation. There was f ound to be no hidden areas of purulence. A medium Hemovac drain was placed and it was then closed us ing interrupted nylon sutures. He was placed in Aquacel dressing and then wrapped with well-padded s oft roll and then placed back into a posterior splint. He was then awakened and taken to recovery ro in good condition. No complications. SE/MODL Voice ID: [id number] Report ID: [id number]
--- NOTE | 2020-03-10 09:46 | P.DS ---
Admission Date: 03/04/20 Discharge Date: 03/10/20 Primary Care Provider: Dr. Olmos Disposition: ROUTINE DISCHARGE Discharge Condition: GOOD Reason for Admission: Cellulitis left upper extremity Consultations: Orthopedics-Dr. Juárez Infectious disease-Dr. Beck Procedures: COVID: Negative ECHO: EF 69% Otherwise unremarkable Surgery: Date: 03/08/20 Preoperative diagnosis: left septic olecranon bursitis/septic Postoperative diagnosis: same Primary procedure: sharp I&D with bursal excision Estimated blood loss: 10ccs Anesthesia: General Transferred to: Recovery Room Condition: Good Surgery: Date: 03/10/20 Preoperative diagnosis: left septic olecranon bursitis/septic s/p I&D Postoperative diagnosis: same Primary procedure: sharp I&D with closure over drain Estimated blood loss: 20ccs Anesthesia: General Complications: None Transferred to: Recovery Room Condition: Good Medical Problem List: Left upper extremity cellulitis with olecranon bursitis with abscess formation, failed outpatient therapy complicated with history of MRSA, status post initial surgery of sharp irrigation/debridement and 2nd procedure of sharp irrigation debridement with closure over drain Brief History of Present Illness: 45-year-old male presented to the emergency room with worsening left elbow pain, swelling. Patient had been seen by orthopedics and diagnosis with bursitis. Patient was started on antibiotic therapy but no improvement. Patient was admitted for further evaluation and treatment. Hospital Course: Patient presented with left upper extremity cellulitis with olecranon bursitis with abscess formation. Patient failed outpatient therapy. Patient was seen by orthopedics and infectious disease. Patient was treated with IV antibiotic therapy with improvement. Patient did require surgery. Surgery performed on 03/08/2020 was sharp I&D with bursa excision. The patient was monitored for 2 days on IV antibiotic therapy then another surgery included sharp I&D with closure over drain. Patient tolerated procedure well. So far blood cultures negative. Wound cultures negative. CRP has improved. Case discussed in detail with orthopedic surgery and infectious disease. At discharge patient will go home on Levaquin 500 mg daily and clindamycin 300 mg 3 times a day for 10 days. Patient will follow up with Orthopedic surgery tomorrow for removal of the d rain. Patient will continue with orthopedic recommendations. Recommend follow up with PCP within 1 week to follow up final results of wound cultures. Patient will also be given lactobacillus 1 pill 3 times a day. Patient may take Tylenol or ibuprofen as needed for pain. Vital Signs/Physical Exam: Temp Pulse Resp BP Pulse Ox 97.0 F 63 16 125/85 98 03/10/20 09:03 03/10/20 09:03 03/10/20 09:03 03/10/20 09:03 03/10/20 04:00 General: Alert, In no apparent distress, Oriented x3, Cooperative HEENT: Atraumatic Neck: Supple Respiratory: Clear to auscultation bilaterally, Normal air movement Cardiovascular: Normal pulses, Regular rate/rhythm Integumentary: Other (Left elbow/upper extremity bandaged. Drain in place.) Neurological: Normal speech, Normal strength at 5/5 x4 extr, Normal tone Laboratory Data at Discharge: WBC 8.2 K/uL (4.3-10.9) D 03/10/20 06:46 Hgb 12.7 g/dL (13.6-17.9) L 03/10/20 06:46 Hct 39.0 % (39.6-49.0) L 03/10/20 06:46 Plt Count 258 K/uL (152-406) 03/10/20 06:46 Sodium 139 mmol/L (136-145) 03/09/20 07:43 Potassium 4.6 mmol/L (3.5-5.1) 03/09/20 07:43 BUN 17 mg/dL (7-18) 03/09/20 07:43 Creatinine 0.82 mg/dL (0.55-1.3) 03/09/20 07:43 Glucose 79 mg/dL (74-106) 03/09/20 07:43 Home Medications: Lactobacillus Acidophilus [Acidophilus Lactobacilli] 1 each PO TID #90 capsule 03/10/20 Levofloxacin [Levaquin] 500 mg PO DAILY #10 tablet 03/10/20 clindamycin HCL [Clindamycin HCl] 300 mg PO TID #30 capsule 03/10/20 New Medications: Lactobacillus Acidophilus [Acidophilus Lactobacilli] 1 each PO TID #90 capsule clindamycin HCL [Clindamycin HCl] 300 mg PO TID #30 capsule Levofloxacin [Levaquin] 500 mg PO DAILY #10 tablet Patient Discharge Instructions: Follow up with PCP in 1 week to follow up this hospitalization. Patient presented with left upper extremity cellulitis with olecranon bursitis with abscess formation. Patient failed outpatient therapy. Patient was seen by orthopedics and infectious disease. Patient was treated with IV antibiotic therapy with improvement. Patient did require surgery. Surgery performed on 03/08/2020 was sharp I&D with bursa excision. The patient was monitored for 2 days on IV antibiotic therapy then another surgery included sharp I&D with closure over drain. Patient tolerated procedure well. So far blood cultures negative. Wound cultures negative. CRP has improved. Case discussed in detail with orthopedic surgery and infectious disease. At discharge patient will go home on Levaquin 500 mg daily and clindamycin 300 mg 3 times a day for 10 days. Patient will follow up with Orthopedic surgery tomorrow for removal of the drain. Patient will continue with orthopedic recommendations. Recommend follow up with PCP within 1 week to follow up final results of wound cultures. Patient will also be given lactobacillus 1 pill 3 times a day. Patient may take Tylenol or ibuprofen as needed for pain. Diet: AHA Activity: Ad jose d Followup: Jenn Olmos MD [Primary Care Provider] - Time spent managing pt's care (in minutes): 55
[2020-03-10] MEDS: CEFEPIME/SWI 1gm 10 ML IV SCH (10:26)
[2020-03-10 13:38] VITALS: BP 118/82; TEMP 97.6
== END 2020-03-10 11:13 | disposition home or self-care (01) | DRG 575 ==
LOC: ER 16:31 → 2ND 22:59
PROVIDERS: ADMIT Family Medicine; ATTEND Family Medicine
PROC: 0MB40ZZ Excision of Left Elbow Bursa and Ligament, Open Approach (ICD-10-PCS; 2020-03-08)
PROC: 0HR Skin and Breast, Replacement (ICD-10-PCS; principal; 2020-03-08 07:00)
PROC: 0JBH0ZZ Excision of Left Lower Arm Subcutaneous Tissue and Fascia, Open Approach (ICD-10-PCS; 2020-03-10)
PROC: 0JQH0ZZ Repair Left Lower Arm Subcutaneous Tissue and Fascia, Open Approach (ICD-10-PCS; 2020-03-10)
DX: L03.114 Cellulitis of left upper limb (principal); M70.22 Olecranon bursitis, left elbow; L02.414 Cutaneous abscess of left upper limb; Z86.14 Personal history of Methicillin resistant Staphylococcus aureus infection; Z79.899 Other long term (current) drug therapy; Z79.890 Hormone replacement therapy; Z20.822 Contact with and (suspected) exposure to COVID-19
CPT/HCPCS: 36415; 80048; 80202; 84145; 85025; 86140; 87040; 87070; 87075; 87205; 88304; 93306; 93971; 96365; 96375; 99285; A9577; J0692; J1100; J1170; J1650; J2175; J2250; J2405; J2704; J2795; J3010; J3370; J7040; J7050; J7120; U0003